=== PATIENT | male | born 1955 | race Hispanic/Latino ===

== ENCOUNTER 2018-10-22 17:39 | Inpatient (IN) | payer OTHER ==
--- NOTE | 2018-10-22 18:19 | ED PDOC ---
Arrival/HPI - General Chief Complaint: Abnormal Skin Integrity Time Seen by Provider: 10/22/18 17:48 Historian: Patient - History of Present Illness Narrative History of Present Illness (Text): 10/22/18 18:15 63 year old male, with past medical history of hypertension, hyperlipidemia and cardiac catheterization, who presents to the Emergency department for evaluation of right lower extremity swelling and lump on the site of cardiac catheterization since yesterday. Patient states he had a cardiac catheterization done last week and was discharged home with no complications. Patient reports driving 8 hours to [place] the following day and returning back home the same day driving another 8 hours. Patient reports strenuous activity since discharge but denies any trauma or injury. Patient states he realized a lump to the area yesterday and noticed his right leg was swollen, prompting him to contact Dr. Quezada, who subsequently referred patient to the Emergency department for medical evaluation. Patient denies any other associated somatic complaints. Patient denies any fevers, chills, headache, dizziness, chest pain, shortness of breath, dyspnea on exertion, cough, abdominal pain, nausea, vomiting, diarrhea, back pain, neck pain, or any other complaints. PMD and Forest Scientist: Dr. Hernández Time/Duration: 24 hours Symptom Onset: Gradual Symptom Course: Unchanged Activities at Onset: Light Context: Other (Referred by Dr. Quezada) Past Medical History - Provider Review Nursing Documentation Reviewed: Yes - Infectious Disease Hx of Infectious Diseases: None - Cardiac Hx Hypertension: Yes Other/Comment: 1 cardiac cath 09/2018 - Psychiatric Hx Substance Use: No - Surgical History Other/Comment: L ear surgery - Anesthesia Hx Anesthesia Reactions: No Hx Malignant Hyperthermia: No Family/Social History - Physician Review Nursing Documentation Reviewed: Yes Family/Social History: Unknown Family HX Smoking Status: Never Smoked Hx Alcohol Use: Yes Frequency of alcohol use: Socially Hx Substance Use: No Allergies/Home Meds Allergies/Adverse Reactions: Allergies No Known Allergies Allergy (Unverified 10/22/18 18:17) Home Medications: Home Meds Medication Instructions Recorded Confirmed Alfuzosin HCl [Uroxatral] 10 mg PO DAILY 10/22/18 10/22/18 Aspirin [Ecotrin] 81 mg PO DAILY 10/22/18 10/22/18 Atorvastatin [Lipitor] 40 mg PO DAILY 10/22/18 10/22/18 Losartan [Cozaar] 100 mg PO DAILY 10/22/18 10/22/18 Plavix 75 mg PO DAILY 10/22/18 10/22/18 Review of Systems - Physician Review All systems were reviewed & negative as marked: Yes - Review of Systems Constitutional: absent: Fevers Respiratory: absent: SOB, Cough Cardiovascular: Edema (Right leg swelling). absent: Chest Pain Gastrointestinal: absent: Abdominal Pain, Nausea, Vomiting Genitourinary Male: absent: Dysuria Musculoskeletal: absent: Back Pain, Neck Pain Skin: absent: Rash Neurological: absent: Headache, Dizziness Physical Exam Vital Signs Reviewed: Yes Vital Signs Temp Pulse Resp BP Pulse Ox 10/22/18 17:40 99.4 F 88 18 172/93 H 96 Temperature: Afebrile Blood Pressure: Hypertensive Pulse: Regular Respiratory Rate: Normal Appearance: Positive for: Well-Appearing, Non-Toxic, Comfortable Pain Distress: None Mental Status: Positive for: Alert and Oriented X 3 - Systems Exam Head: Present: Atraumatic, Normocephalic Pupils: Present: PERRL Extroacular Muscles: Present: EOMI Conjunctiva: Present: Normal Respiratory/Chest: Present: Clear to Auscultation, Good Air Exchange. No: Respiratory Distress, Accessory Muscle Use Cardiovascular: Present: Regular Rate and Rhythm, Normal S1, S2. No: Murmurs Abdomen: No: Tenderness, Distention, Peritoneal Signs Back: Present: Normal Inspection Upper Extremity: Present: Normal Inspection. No: Cyanosis, Edema Lower Extremity: Present: Edema (pitting edema to right leg), NORMAL PULSES (Good femoral and pedal pulse), Other (Palpable lump to right sided upper thigh/groin area) Neurological: Present: GCS=15, CN II-XII Intact, Speech Normal Skin: Present: Warm, Dry, Normal Color. No: Rashes Psychiatric: Present: Alert, Oriented x 3, Normal Insight, Normal Concentration Medical Decision Making ED Course and Treatment: 10/22/18 18:30 Impression: 63 year old male presents to the Emergency department complaining of right extremity swelling and lump to catheterization site. Differential Diagnosis included but are not limited to: DVT, Pseudoaneurysm Plan: -- Labs -- IV fluids -- Zofran -- Reassess and disposition -- Dr. Quezada called about this patient and he gave his recommendation of Lovenox dose in ED then he will do Thrombin injection tomorrow. He also recommended light hydration and basic labs. Prior Visits: Notes and results from previous visits were reviewed. Progress Notes: 10/22/18 18:30 Extremity US reviewed by Dr. Robert Quezada, shows: FINDINGS: There is acute hypoechoic occlusive thrombus noted in the right common femoral vein and proximal right femoral vein. The thrombus does not extend into the visualized right external iliac vein. The mid and distal right femoral vein, popliteal vein, and visualized tibial veins are patent and compressible. IMPRESSION: 1. Acute occlusive thrombus in the right common femoral vein and proximal right femoral vein Duplex Scan of Lower Extremity read by Dr. Robert Quezada, shows: FINDINGS: There is a 3 cm pseudoaneurysm with a discrete neck arising from the right common femoral artery. No significant thrombus is noted within the pseudoaneurysm. Acute DVT is noted in the adjacent right common femoral vein. IMPRESSION: 1. 3 cm pseudoaneurysm with a discrete neck arising from the right common femoral artery 2. Acute occlusive thrombus in the adjacent right common femoral vein 10/22/18 19:20 Labs reviewed. Patient's actual weight obtained. Treated with first dose of Lovenox in the ED. Dr. Quezada will do a Thrombin injection tomorrow. Then he recommends Lovenox BID. Reevaluation of groin appears stable and no further swelling at this time. Discussed case with Dr. Ayala who will admit to his service. - RAD Interpretation Radiology Orders: 10/23/18 09:30 USGUIDED VASC/PSUEDOW/THROMBIN [US] Routine Disposition/Present on Arrival - Present on Arrival Any Indicators Present on Arrival: No History of DVT/PE: No History of Uncontrolled Diabetes: No Urinary Catheter: No History of Decub. Ulcer: No History Surgical Site Infection Following: None - Disposition Have Diagnosis and Disposition been Completed?: Yes Diagnosis: DVT (deep venous thrombosis), Pseudoaneurysm Disposition Time: 19:24 Patient Plan: Admission Condition: FAIR Forms: [employer] (Portuguese)
[2018-10-22] MEDS: Sodium Chloride 0.9% 1,000 ML IV SCH (18:59)
[2018-10-22 19:07] LABS: BASO # 0.01 K/mm3 (0.0-2.0); BASO % 0.1 % (0.0-3.0); EOS # 0.1 (0.0-0.7); EOS % 1.4 % (1.5-5.0); GRAN # 7.02 (1.4-6.5); GRAN % 74.9 % (50.0-68.0); HEMOGLOBIN 11.3 g/dL (14.0-18.0); LYMPH # 1.3 (1.2-3.4); LYMPH % 13.7 % (22.0-35.0); MEAN CELL VOLUME 91.2 fl (80.0-105.0); MEAN CORPUSCULAR HEMOGLOBIN 30.3 pg (25.0-35.0); MEAN CORPUSCULAR HGB CONC 33.2 g/dl (31.0-37.0); MEAN PLATELET VOLUME 9.5 fl (7.0-11.0); MONO # 0.9 (0.1-0.6); MONO % 9.9 % (1.0-6.0); RBC 3.73 10^6/uL (3.5-6.1); RED CELL DISTRIBUTION WIDTH 12.7 % (11.5-14.5); WHITE BLOOD COUNT 9.4 10^3/uL (4.5-11.0)
[2018-10-22 19:13] LABS: INR 1.08; PARTIAL THROMBOPLASTIN TIME 29.1 Seconds (25.1-36.5); PROTHROMBIN TIME 12.3 SECONDS (9.4-12.5)
[2018-10-22] MEDS ORDERED: Enoxaparin 100 mg Syringe SC STA (19:14)
[2018-10-22 19:26] LABS: BLOOD UREA NITROGEN 18 mg/dL (7-21); CALCIUM 9.1 mg/dL (8.4-10.5); GFR NON-AFRICAN AMERICAN > 60
[2018-10-23 01:31] VITALS: BMI 29.2
--- NOTE | 2018-10-23 01:36 | CON ---
DATE: 10/22/2018 TIME: 07:48 p.m. HISTORY OF PRESENT ILLNESS: Mr. Harrington is a 63-year-old gentleman who had a recent cardiac intervention performed from the right groin at an outside institution. In the past 2-3 days, he has developed a pulsatile mass with pain and swelling in the right lower extremity. Duplex ultrasound of the right groin demonstrated a 3 cm right common femoral artery pseudoaneurysm along with fairly extensive DVT involving the right common femoral vein and proximal right femoral vein. PLAN: Options were discussed with the patient. The pseudoaneurysm is amenable to ultrasound-guided thrombin injection. However, the patient is currently on aspirin and Plavix and will need some anticoagulation for his right lower extremity DVT which may decrease the chances of durable thrombosis and increase the risk of recannulization. The patient will also require anticoagulation for approximately six months for the catheterization-related RLE DVT. He has no pulmonary symptoms at the current time. His clinical treatment was discussed with Dr. Hernández and Dr. Ayala. Robret Quezada MD [facility]
--- NOTE | 2018-10-23 07:21 | CP.PCM.HP ---
<EnochAvtar lloyd - Last Filed: 10/23/18 21:28> History of Present Illness - History of Present Illness History of Present Illness: H&P for Dr. Ayala Service CC: R groin pain, mass, and RLE swelling This is a 63 yo M with PMH of HTN, HLD, and recent cardiac cath who developed RLE swelling and sensation of mass/pain in his right groin 2 days post-cardiac cath. As per patient, after discharge, drove 8 hours home, and during that time felt that his right leg was cool. While moving boxes around his house, he developed the sense of mass in his groin, with some generalized discomfort in th at area. His right leg progressively became more swollen, so he returned to the area, and went to his PMD, who instructed him to present to [facility]. Here in the ED, duplex imaging was notable for 3cm pseudoaneurysm and an occlusive thrombus of the right common and proximal femoral veins. He was started on Lovenox as per IR's instructions, and is pending thrombin injection by IR. Denies sensation of crushing pain, sharp pains, bleeding from access site, loss of sensation in RLE, or loss of gait. 12-system ROS reviewed and negative except as above. PMH: as above PSH: Cardiac cath Fam Hx: denies relevant fam hx Soc Hx: denies tobacco, illicits, IVDA; admits social EtOH PMD: Dr. Hernández Present on Admission - Present on Admission Any Indicators Present on Admission: No History of DVT/PE: No History of Uncontrolled Diabetes: No Review of Systems - Review of Systems All systems: reviewed and no additional remarkable complaints except (as per HPI) Past Patient History - Infectious Disease Hx of Infectious Diseases: None - Past Social History Smoking Status: Never Smoked - CARDIAC Hx Hypertension: Yes Other/Comment: 1 cardiac cath 09/2018 - MUSCULOSKELETAL/RHEUMATOLOGICAL Hx Falls: No - PSYCHIATRIC Hx Substance Use: No - SURGICAL HISTORY Other/Comment: L ear surgery - ANESTHESIA Hx Anesthesia Reactions: No Hx Malignant Hyperthermia: No Meds Allergies/Adverse Reactions: Allergies Allergy/AdvReac Type Severity Reaction Status Date / Time No Known Allergies Allergy Unverified 10/22/18 18:17 Physical Exam - Constitutional Appears: Non-toxic, No Acute Distress - Head Exam Head Exam: ATRAUMATIC, NORMAL INSPECTION, NORMOCEPHALIC - Eye Exam Eye Exam: Normal appearance. absent: Conjunctival injection, EOMI, Scleral icterus Pupil Exam: absent: Irregular, Unequal - ENT Exam ENT Exam: Mucous Membranes Moist - Neck Exam Neck exam: Positive for: Full Rom, Normal Inspection - Respiratory Exam Respiratory Exam: Clear to Auscultation Bilateral, NORMAL BREATHING PATTERN. absent: Accessory Muscle Use, Chest Wall Tenderness, Decreased Breath Sounds, Rales, Rhonchi, Wheezes - Cardiovascular Exam Cardiovascular Exam: REGULAR RHYTHM, RRR, +S1, +S2. absent: Bradycardia, Tachycardia, Irregular Rhythm, JVD, +S4 - GI/Abdominal Exam GI & Abdominal Exam: Normal Bowel Sounds, Soft. absent: Diminished Bowel Sounds, Distended, Firm, Hyperactive Bowel Sounds, Hypoactive Bowel Sounds, Rigid, Tenderness Additional comments: right groin discomfort, not exacerbated by palpation, minimally palpable nodule/mass - Extremities Exam Additional comments: bilateral UE: unremarkable, full ROM, +2 radials, no edema LLE: unremarkable, full ROM, +2 dorsalis pedis, no pitting edema, no tenderness RLE: +2 pitting edema extending to above knee, +1 dorsalis pedis, no calf tenderness but increased discomfort with lateral and posterior thigh palpation, intact sensation throughout, no necrotic/erythematous regions - Back Exam Back exam: absent: CVA tenderness (L), CVA tenderness (R) - Neurological Exam Additional comments: awake and alert, moving all extremities spontaneously, following all commands - Psychiatric Exam Psychiatric exam: Normal Affect, Normal Mood - Skin Skin Exam: Dry, Intact, Normal Color, Warm Results - Vital Signs Recent Vital Signs: Last Vital Signs Temp 97.8 F 10/22/18 23:13 Pulse 69 10/22/18 23:13 Resp 18 10/23/18 01:01 BP 156/73 H 10/22/18 23:13 Pulse Ox 99 10/22/18 23:13 - Labs Result Diagrams: 10/22/18 18:58 10/22/18 18:58 Labs: Laboratory Results - last 24 hr 10/22/18 10/22/18 10/22/18 18:58 18:58 18:58 WBC 9.4 RBC 3.73 Hgb 11.3 L Hct 34.0 L MCV 91.2 MCH 30.3 MCHC 33.2 RDW 12.7 Plt Count 300 MPV 9.5 Gran % 74.9 H Lymph % (Auto) 13.7 L Sheridan % (Auto) 9.9 H Eos % (Auto) 1.4 L Baso % (Auto) 0.1 Gran # 7.02 H Lymph # (Auto) 1.3 Sheridan # (Auto) 0.9 H Eos # (Auto) 0.1 Baso # (Auto) 0.01 PT 12.3 INR 1.08 APTT 29.1 Sodium 138 Potassium 4.0 Chloride 108 H Carbon Dioxide 23 Anion Gap 10 BUN 18 Creatinine 0.9 Est GFR ( Amer) > 60 Est GFR (Non-Af Amer) > 60 Random Glucose 99 Calcium 9.1 Assessment & Plan - Assessment and Plan (Free Text) Assessment: This is a 63 yo M with PMH of HTN and HLD presenting with right groin mass/discomfort and RLE swelling 2 days post cardiac cath. He was found to have occlusive thrombus and pseudoaneurysm. Pending thrombin by IR. Plan: 1) R common and proximal femoral thrombus -s/p cardiac cath 2 days prior -on therapeutic lovenox -routine distal pulse check, monitor for development of ischemic limb 2) Pseudoaneurysm -pending thrombin by IR -continue local compression -Cardio consulted, appreciate their recs 3) Chronic issues -HTN: continue home losartan -HLD: heart healthy diet, continue lipitor Dispo: Pending thrombin for pseudoaneurysm Ppx: Lovenox covers for DVT Reviewed and discussed with attending, Dr. Ayala <Matt Ayala S - Last Filed: 10/24/18 21:47> Results - Vital Signs Recent Vital Signs: Last Vital Signs Temp 98.7 F 10/24/18 14:00 Pulse 80 10/24/18 14:00 Resp 20 10/24/18 14:00 BP 165/99 H 10/24/18 14:00 Pulse Ox 94 L 10/24/18 14:00 - Labs Result Diagrams: 10/24/18 07:30 10/24/18 07:30 Labs: Laboratory Results - last 24 hr 10/24/18 10/24/18 10/24/18 07:30 07:30 07:30 WBC 8.3 RBC 4.03 Hgb 12.0 L Hct 36.6 L MCV 90.8 MCH 29.8 MCHC 32.8 RDW 12.5 Plt Count 313 MPV 9.3 Gran % 73.2 H Lymph % (Auto) 15.3 L Sheridan % (Auto) 9.8 H Eos % (Auto) 1.6 Baso % (Auto) 0.1 Gran # 6.07 Lymph # (Auto) 1.3 Sheridan # (Auto) 0.8 H Eos # (Auto) 0.1 Baso # (Auto) 0.01 PT 12.9 H INR 1.12 APTT 34.1 Sodium 138 Potassium 3.8 Chloride 108 H Carbon Dioxide 23 Anion Gap 11 BUN 12 Creatinine 0.8 Est GFR ( Amer) > 60 Est GFR (Non-Af Amer) > 60 Random Glucose 100 Calcium 8.7 Assessment & Plan - Assessment and Plan (Free Text) Plan: Pt seen and examined. I have reviewed the note of the medical nurse and agree with it. I have discussed the assessment and plan with the resident. I have reviewed the patient's labs and medications. Pt with R femoral DVT. He will be placed on Lovenox. He has a pseudoaneurysm due to a cardiac cath that he had recently. Pt is on Losartan for HTN. Will need IR intervention. Will get Cadio consult.
--- NOTE | 2018-10-23 08:37 | CON ---
DATE: 10/23/2018 HISTORY OF PRESENT ILLNESS: This is a 63-year-old male known to me from the office with recent cardiac evaluation with an abnormal stress test, cardiac catheterization and coronary intervention on a severely diseased proximal LAD. This occurred last week. He was placed on aspirin and Plavix. He traveled to [place] for the where he engaged in heavy strenuous activity, moving furniture from his house into the attic and moving his girlfriend's furniture into his house. He climbed the narrow [facility] stairs at least 20-30 times, he says. He also drove nonstop between [place] and [place] both ways. He then noticed discomfort in the groin and swelling of the right leg. He came to the office yesterday and was sent for an ultrasound of the groin which demonstrated a femoral artery pseudoaneurysm and DVT involving the common femoral and femoral veins. He had consultation with Dr. Quezada. He was admitted for thrombin injection and treatment for DVT. He received Lovenox in the emergency room. The plan is for injection of the pseudoaneurysm later this morning. There is no chest pain or shortness of breath. No orthopnea, PND, syncope, presyncope, lightheadedness, dizziness, vertigo. No claudication. No fever, chills, cough, sputum production, hemoptysis. No abdominal pain, nausea, vomiting, diarrhea, constipation, melena. 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 There is no history of rheumatic fever, myocardial infarction, congestive heart failure, arrhythmia, stroke, TIA, diabetes, gout, prior DVT or PE. MEDICATIONS: At the time of admission include Uroxatral, aspirin, Plavix, Lipitor, losartan. ALLERGIES: THERE ARE NO MEDICATION ALLERGIES REPORTED. SOCIAL HISTORY: He lives at home in [place]. He is working at the [employer] currently and living in this area for about 6 months. He does not smoke. He drinks alcohol socially. FAMILY HISTORY: Noncontributory. REVIEW OF SYSTEMS: Ten-point review of systems otherwise unremarkable except as noted above. PHYSICAL EXAMINATION: GENERAL: He is a well-developed man lying in bed on 5R, in no acute distress. VITAL SIGNS: Pulse is 69, he is afebrile, blood pressure 156/73, respirations 18, O2 sat 98-99% on room air. HEENT: Exam reveals no neck vein distention, thyromegaly, carotid bruit. Mucous membranes moist. Conjunctivae pink. NECK: Supple. LUNGS: Lung toa clear throughout. HEART: Examination of the heart revealed normal first and second heart sounds. ABDOMEN: Soft. Bowel sounds present. No mass, organomegaly, tenderness, rebound, guarding, CVA tenderness or palpable abdominal aortic aneurysm. EXTREMITIES: Exam revealed no cyanosis or clubbing. There is mild edema of the right lower extremity. There is a small hematoma in the right groin. There is no audible bruit over the femoral artery on the right side. Pulses are full throughout. NEUROLOGICAL: Awake, alert and oriented. PSYCHIATRIC: Normal as to mood and affect. SKIN: Warm and dry. No rash or cellulitis. LABORATORY AND IMAGING: A duplex ultrasound of the right groin is noted, although the report is not in the system as yet. I spoke with Dr. Robert Quezada by phone yesterday. It demonstrated a 3 cm pseudoaneurysm with a discrete neck arising from the right common femoral artery. There was also occlusive thrombus in the right common femoral vein and proximal right femoral vein. White count, platelet counts normal, hemoglobin 11.3, hematocrit 34. PT/INR, PTT unremarkable. Electrolytes, BUN, creatinine, blood sugar unremarkable. IMPRESSION: Claude Harrington is a 63-year-old man with recent cardiac catheterization and coronary intervention on the severe proximal left anterior descending artery, who presents with a pseudoaneurysm and deep venous thrombosis in the right groin related to the procedure and vigorous activities postprocedure including two long car drives to [place], such activities predisposing him toward deep venous thrombosis and groin vascular problems. At this time, he has received a dose of Lovenox. Dr. Quezada is planning to inject the pseudoaneurysm later this morning. We will continue aspirin and Plavix. He will need anticoagulation, this will be discussed with Dr. Quezada once the pseudoaneurysm is dealt with. He will avoid all vigorous activities for the time being and report any recurring symptoms to us promptly. Shamar Hernández MD [facility] # [id number] [facility]
[2018-10-23 09:02] VITALS: RESP 20
[2018-10-23] MEDS ORDERED: Thrombin Topical 20,000 Intl Units Spray Kit TOP ONE (09:25)
[2018-10-23] MEDS ORDERED: Lidocaine 1% Inj (20ml) ONE (09:33)
[2018-10-23] MEDS ORDERED: ALFUZOSIN HCL 10 MG PO SCH (18:00)
--- NOTE | 2018-10-23 18:51 | CARD ---
APPROVED REPORT Date of service: 10/23/2018 EKG Measurement Heart [id number] <Conclusion> Normal sinus rhythm Normal ECG
--- NOTE | 2018-10-23 19:38 | US ---
PROCEDURE: Ultrasound-guided right common femoral artery pseudoaneurysm thrombin injection CLINICAL HISTORY: Recent cardiac catheterization. 3 cm painful pseudoaneurysm arising from the right common femoral artery. PHYSICIAN(S): Robert Quezada M.D. TECHNIQUE: The relative risks and indications for the procedure were explained to the patient and consent obtained. The patient was placed supine on the stretcher and sonography of the right groin performed. This revealed a 3 cm right common femoral artery pseudoaneurysm with a discrete neck. The areas prepped and draped usual sterile fashion. 1 percent xylocaine was used to anesthetize the skin and soft tissues. Under direct ultrasound guidance, a 21 gauge needle was advanced into the right common femoral artery pseudoaneurysm. Its position was confirmed with ultrasound. 2000 units of thrombin were injected into the right common femoral artery pseudoaneurysm. Complete thrombosis was immediately noticed. The right common femoral artery remains patent. Incidental note is made of acute DVT in the right common and proximal femoral vein IMPRESSION: 1. Ultrasound guided right common femoral artery pseudoaneurysm thrombin injection as described above
[2018-10-23] MEDS: Sodium Chloride 0.9% 1,000 ML IV SCH (22:48)
[2018-10-23] MEDS: Enoxaparin 100 mg Syringe SC SCH (22:49)
[2018-10-24 07:51] LABS: BASO # 0.01 K/mm3 (0.0-2.0); BASO % 0.1 % (0.0-3.0); EOS # 0.1 (0.0-0.7); EOS % 1.6 % (1.5-5.0); GRAN # 6.07 (1.4-6.5); GRAN % 73.2 % (50.0-68.0); LYMPH # 1.3 (1.2-3.4); LYMPH % 15.3 % (22.0-35.0); MEAN CELL VOLUME 90.8 fl (80.0-105.0); MEAN CORPUSCULAR HEMOGLOBIN 29.8 pg (25.0-35.0); MEAN CORPUSCULAR HGB CONC 32.8 g/dl (31.0-37.0); MEAN PLATELET VOLUME 9.3 fl (7.0-11.0); MONO # 0.8 (0.1-0.6); MONO % 9.8 % (1.0-6.0); RBC 4.03 10^6/uL (3.5-6.1); RED CELL DISTRIBUTION WIDTH 12.5 % (11.5-14.5); WHITE BLOOD COUNT 8.3 10^3/uL (4.5-11.0)
[2018-10-24 08:00] LABS: INR 1.12; PARTIAL THROMBOPLASTIN TIME 34.1 Seconds (25.1-36.5); PROTHROMBIN TIME 12.9 SECONDS (9.4-12.5)
[2018-10-24 08:11] LABS: BLOOD UREA NITROGEN 12 mg/dL (7-21); CALCIUM 8.7 mg/dL (8.4-10.5); GFR NON-AFRICAN AMERICAN > 60
[2018-10-24 08:37] VITALS: PULSE 80
[2018-10-24] MEDS: Enoxaparin 100 mg Syringe SC SCH (09:21)
--- NOTE | 2018-10-24 11:22 | CP.PCM.DIS ---
<Avtar Kendall - Last Filed: 10/24/18 17:40> Provider - Provider Date of Admission: 10/22/18 19:17 Attending physician: Matt Ayala MD Primary care physician: Dr. Hernández Consults: Cardio: Edgar IR: Robert Quezada Time Spent in preparation of Discharge (in minutes): 35 Diagnosis - Discharge Diagnosis (1) HTN (hypertension) Status: Chronic Priority: Medium (2) HLD (hyperlipidemia) Status: Chronic Priority: Medium (3) DVT (deep venous thrombosis) Status: Acute Priority: High (4) Pseudoaneurysm Status: Resolved Priority: High Hospital Course - Lab Results Lab Results: Most Recent Lab Values WBC 8.3 10^3/uL (4.5-11.0) 10/24/18 07:30 RBC 4.03 10^6/uL (3.5-6.1) 10/24/18 07:30 Hgb 12.0 g/dL (14.0-18.0) L 10/24/18 07:30 Hct 36.6 % (42.0-52.0) L 10/24/18 07:30 MCV 90.8 fl (80.0-105.0) 10/24/18 07:30 MCH 29.8 pg (25.0-35.0) 10/24/18 07:30 MCHC 32.8 g/dl (31.0-37.0) 10/24/18 07:30 RDW 12.5 % (11.5-14.5) 10/24/18 07:30 Plt Count 313 10^3/uL (120.0-450.0) 10/24/18 07:30 MPV 9.3 fl (7.0-11.0) 10/24/18 07:30 Gran % 73.2 % (50.0-68.0) H 10/24/18 07:30 Lymph % (Auto) 15.3 % (22.0-35.0) L 10/24/18 07:30 Morrow % (Auto) 9.8 % (1.0-6.0) H 10/24/18 07:30 Eos % (Auto) 1.6 % (1.5-5.0) 10/24/18 07:30 Baso % (Auto) 0.1 % (0.0-3.0) 10/24/18 07:30 Gran # 6.07 (1.4-6.5) 10/24/18 07:30 Lymph # (Auto) 1.3 (1.2-3.4) 10/24/18 07:30 Morrow # (Auto) 0.8 (0.1-0.6) H 10/24/18 07:30 Eos # (Auto) 0.1 (0.0-0.7) 10/24/18 07:30 Baso # (Auto) 0.01 K/mm3 (0.0-2.0) 10/24/18 07:30 PT 12.9 SECONDS (9.4-12.5) H 10/24/18 07:30 INR 1.12 10/24/18 07:30 APTT 34.1 Seconds (25.1-36.5) 10/24/18 07:30 Sodium 138 mmol/L (132-148) 10/24/18 07:30 Potassium 3.8 mmol/L (3.6-5.0) 10/24/18 07:30 Chloride 108 mmol/L (98-107) H 10/24/18 07:30 Carbon Dioxide 23 mmol/L (21-33) 10/24/18 07:30 Anion Gap 11 (10-20) 10/24/18 07:30 BUN 12 mg/dL (7-21) 10/24/18 07:30 Creatinine 0.8 mg/dl (0.8-1.5) 10/24/18 07:30 Est GFR ( Amer) > 60 10/24/18 07:30 Est GFR (Non-Af Amer) > 60 10/24/18 07:30 Random Glucose 100 mg/dL (70-110) 10/24/18 07:30 Calcium 8.7 mg/dL (8.4-10.5) 10/24/18 07:30 - Hospital Course Hospital Course: This is a 63 yo M with PMH of HTN, HLD, and recent cardiac cath who developed RLE swelling and sensation of mass/pain in his right groin 2 days post-cardiac cath, and was found to have a 3cm pseudoaneurysm and a right femoral vein DVT. As per patient, after discharge, drove 8 hours home, and during that time felt that his right leg was cool. While moving boxes around his house, he developed the sense of mass in his groin, with some generalized discomfort in that area. His right leg progressively became more swollen, so he returned to the area, and went to his PMD, who instructed him to present to [facility] [place] [place]. While here, he was seen by IR and Cardio. As per IR, he underwent procedure with injection of thrombin into the pseudoaneurysm, which resolved it. As per Cardio, he will be discharged on Aspirin, Plavix, and Eliquis for 1 month, after which the aspirin will be discontinued and he will continue on Eliquis and plavix until he finished a 6-month course of Eliquis. Patient was given a prescription for Eliquis, and was instructed to fill and take as prescribed. He was also instructed to resume his home medications as prescribed, to follow up with Dr. Hernández on MondayOct 29, and to avoid any strenuous or physically demanding work until cleared by Dr. Hernández. Patient expressed understanding and agreement with these instructions. He was then discharged. Reviewed and discussed with attending, Dr. Ayala. Discharge Exam - Additional Findings Additional findings: - Constitutional Appears: Non-toxic, No Acute Distress - Head Exam Head Exam: ATRAUMATIC, NORMAL INSPECTION, NORMOCEPHALIC - Eye Exam Eye Exam: Normal appearance. absent: Conjunctival injection, EOMI, Scleral icterus Pupil Exam: absent: Irregular, Unequal - ENT Exam ENT Exam: Mucous Membranes Moist - Neck Exam Neck exam: Positive for: Full Rom, Normal Inspection - Respiratory Exam Respiratory Exam: Clear to Auscultation Bilateral, NORMAL BREATHING PATTERN. absent: Accessory Muscle Use, Chest Wall Tenderness, Decreased Breath Sounds, Rales, Rhonchi, Wheezes - Cardiovascular Exam Cardiovascular Exam: REGULAR RHYTHM, RRR, +S1, +S2. absent: Bradycardia, Tachycardia, Irregular Rhythm, JVD, +S4 - GI/Abdominal Exam GI & Abdominal Exam: Normal Bowel Sounds, Soft. absent: Diminished Bowel Sounds, Distended, Firm, Hyperactive Bowel Sounds, Hypoactive Bowel Sounds, Rigid, Tenderness Additional comments: Bandaging overlying right access site, no palpable mass, mild tenderness to palpation at site of bandaging only - Extremities Exam bilateral UE: unremarkable, full ROM, +2 radials, no edema LLE: unremarkable, full ROM, +2 dorsalis pedis pulse, no pitting edema, no tenderness RLE: trace to +1 pitting edema from foot to mid-fernandez, +2 dorsalis pedis pulses, no calf tenderness, intact sensation throughout, no necrotic/erythematous regions - Back Exam Back exam: absent: CVA tenderness (L), CVA tenderness (R) - Neurological Exam awake and alert, moving all extremities spontaneously, following all commands - Psychiatric Exam Psychiatric exam: Normal Affect, Normal Mood - Skin Skin Exam: Dry, Intact, Normal Color, Warm Discharge Plan - Discharge Medications Prescriptions: Apixaban [Eliquis] 5 mg PO BID #60 tab Apixaban [Eliquis] 10 mg PO BID #14 tablet - Follow Up Plan Condition: FAIR Disposition: HOME/ ROUTINE Patient education suggested?: Yes Instructions: High Blood Pressure (DC), Cardiac Catheterization (DC), Deep Vein Thrombosis (Blood Clots in the Legs) (DC), How to Prevent Blood Clots Additional Instructions: You were seen in the hospital for your leg pain and swelling. You were found to have a clot, and a pseudoaneurysm. The pseudoaneurysm has been treated, and you have been started on a blood thinner for the clot. You have been given a prescription for a blood thinner, Eliquis. Please fill and take as prescribed. Please resume all other home medications as prescribed. Please follow up with your PMD within 1 week. Please follow up with your Real Estate Assistant (Dr. Hernández) this Monday (Oct 29). You are cleared to return to work so long as you do not undertake strenuous activity. Further clearance to return to full responsibilities will be made by your PMD/Real Estate Assistant. Present to the nearest emergency department if you experience worsening or newly concerning symptoms. Referrals: Shamar Hernández MD [Staff Provider] - <Matt Ayala - Last Filed: 10/24/18 21:25> Provider - Provider Date of Admission: 10/22/18 19:17 Attending physician: Matt Ayala MD Hospital Course - Lab Results Lab Results: Most Recent Lab Values WBC 8.3 10^3/uL (4.5-11.0) 10/24/18 07:30 RBC 4.03 10^6/uL (3.5-6.1) 10/24/18 07:30 Hgb 12.0 g/dL (14.0-18.0) L 10/24/18 07:30 Hct 36.6 % (42.0-52.0) L 10/24/18 07:30 MCV 90.8 fl (80.0-105.0) 10/24/18 07:30 MCH 29.8 pg (25.0-35.0) 10/24/18 07:30 MCHC 32.8 g/dl (31.0-37.0) 10/24/18 07:30 RDW 12.5 % (11.5-14.5) 10/24/18 07:30 Plt Count 313 10^3/uL (120.0-450.0) 10/24/18 07:30 MPV 9.3 fl (7.0-11.0) 10/24/18 07:30 Gran % 73.2 % (50.0-68.0) H 10/24/18 07:30 Lymph % (Auto) 15.3 % (22.0-35.0) L 10/24/18 07:30 Morrow % (Auto) 9.8 % (1.0-6.0) H 10/24/18 07:30 Eos % (Auto) 1.6 % (1.5-5.0) 10/24/18 07:30 Baso % (Auto) 0.1 % (0.0-3.0) 10/24/18 07:30 Gran # 6.07 (1.4-6.5) 10/24/18 07:30 Lymph # (Auto) 1.3 (1.2-3.4) 10/24/18 07:30 Morrow # (Auto) 0.8 (0.1-0.6) H 10/24/18 07:30 Eos # (Auto) 0.1 (0.0-0.7) 10/24/18 07:30 Baso # (Auto) 0.01 K/mm3 (0.0-2.0) 10/24/18 07:30 PT 12.9 SECONDS (9.4-12.5) H 10/24/18 07:30 INR 1.12 10/24/18 07:30 APTT 34.1 Seconds (25.1-36.5) 10/24/18 07:30 Sodium 138 mmol/L (132-148) 10/24/18 07:30 Potassium 3.8 mmol/L (3.6-5.0) 10/24/18 07:30 Chloride 108 mmol/L (98-107) H 10/24/18 07:30 Carbon Dioxide 23 mmol/L (21-33) 10/24/18 07:30 Anion Gap 11 (10-20) 10/24/18 07:30 BUN 12 mg/dL (7-21) 10/24/18 07:30 Creatinine 0.8 mg/dl (0.8-1.5) 10/24/18 07:30 Est GFR ( Amer) > 60 10/24/18 07:30 Est GFR (Non-Af Amer) > 60 10/24/18 07:30 Random Glucose 100 mg/dL (70-110) 10/24/18 07:30 Calcium 8.7 mg/dL (8.4-10.5) 10/24/18 07:30 - Hospital Course Hospital Course: Pt seen and examined. I have reviewed the note of the medical technicians and agree with it. I have discussed the assessment and plan with the resident. I have reviewed the patient's labs and medications. Pt with R femoral DVT. He will be placed on Eliquis. Pt also had a R 3 cm pseudoaneurysm that was injected with Thrombin. He was cleared to go home by IR and Dr Guido. Pt will continue with Plavix and ASA. Pt will be discharged home. He will f/u with PMD.
--- NOTE | 2018-10-24 12:20 | PN ---
DATE: 10/24/2018 SUBJECTIVE: The patient is seen sitting in bed on 5R. He feels better. He has no inguinal pain at the present time. Repeat ultrasound shows no evidence of residual pseudoaneurysm. He denies any chest pain or dyspnea. CURRENT MEDICATIONS: Include; Cozaar 100 mg daily, aspirin once daily, Lipitor, Plavix 75 mg daily and Lovenox. OBJECTIVE: GENERAL: He is a middle-aged man, appears comfortable at the present time. VITAL SIGNS: Blood pressure is 150/96 with a pulse of 80 and respirations 16. He is afebrile. HEENT: No JVD. CHEST: Clear to auscultation and percussion. HEART: Normal first and second sounds. No pathological murmurs noted. ABDOMEN: Soft and nontender with bowel sounds. EXTREMITIES: No edema. DIAGNOSTIC DATA: Potassium 3.8, BUN and creatinine 12 and 0.8. Hemoglobin and hematocrit 12 and 36.6 with a white count 8.3 and platelet count 313,000. IMPRESSION: 1. Recent right femoral artery pseudoaneurysm with associated femoral deep venous thrombosis. Status post thrombin injection with resolution pseudoaneurysm. 2. Coronary artery disease status post recent percutaneous coronary intervention of left anterior descending. 3. History of hypertension. RECOMMENDATIONS: Aspirin and Plavix therapy will be resumed. Lovenox can be discontinued and the patient will be initiated on Eliquis 5 mg b.i.d. From a cardiac standpoint, he is stable for discharge home today. Risk factor control was advised and the need for uninterrupted aspirin, Plavix therapy for the next 30 days will be planned. After 30 days, his aspirin will be withheld and he will remain on Eliquis and Plavix. Eliquis will be discontinued after 6 months assuming complete resolution of his DVT, at which time aspirin will be resumed and he will complete 1 year of aspirin and Plavix therapy. Outpatient followup will be arranged. Mckilney Sol MD [facility]
[2018-10-24 15:08] VITALS: BP 165/99; TEMP 98.7; O2SAT 94
--- NOTE | 2018-10-24 16:25 | US ---
PROCEDURE: Duplex arterial ultrasound of the right groin. HISTORY: Right common femoral artery pseudoaneurysm. Status post thrombin injection. Evaluate for recanalization. PHYSICIAN(S): Robert Quezada MD. FINDINGS: The right common femoral artery pseudoaneurysm remains completely thrombosed post thrombin injection. The right common femoral artery is patent with a normal waveform. IMPRESSION: 1. Thrombosed hematoma post ultrasound-guided thrombin injection. 2. Patent right common femoral artery.
== END 2018-10-24 18:29 | disposition home or self-care (01) | DRG 315 ==
LOC: ED 17:39 → ERH 19:17 → 5RNO 21:45
PROVIDERS: ADMIT Internal Medicine Nephrology; ATTEND Internal Medicine Nephrology
PROC: 3E053GC Introduction of Other Therapeutic Substance into Peripheral Artery, Percutaneous Approach (ICD-10-PCS; principal; 2018-10-23)
DX: I97.89 Other postprocedural complications and disorders of the circulatory system, not elsewhere classified (principal); I82.411 Acute embolism and thrombosis of right femoral vein; I72.4 Aneurysm of artery of lower extremity; I10 Essential (primary) hypertension; E78.5 Hyperlipidemia, unspecified; I25.10 Atherosclerotic heart disease of native coronary artery without angina pectoris; H91.92 Unspecified hearing loss, left ear; Y83.8 Other surgical procedures as the cause of abnormal reaction of the patient, or of later complication, without mention of misadventure at the time of the procedure; Z98.61 Coronary angioplasty status; Z79.01 Long term (current) use of anticoagulants; Z79.02 Long term (current) use of antithrombotics/antiplatelets; Z79.82 Long term (current) use of aspirin; Z79.899 Other long term (current) drug therapy